=== PATIENT | male | born 1995 | race Hispanic/Latino ===

== ENCOUNTER → 2017-04-21 | Day surgery (SDC) | payer OTHER ==
[~2017-04-21] VITALS: Ht 153.7 cm; Wt 49.7 kg
[2017-04-21] VITALS (8 sets, daily range): BP systolic 90–118; BP diastolic 55–73; PULSE 50–78; RESP 12–16; O2SAT 98–100
[~2017-04-21] MED LIST: Bupivacaine-MPF 0.5% 30 mL Inj INFILTRATE ONE; CEPH500C PO; Dexamethasone 4 mg/mL Inj IVPUSH PRN; EPHEDrine Sulfate 50 mg/mL Inj IVPUSH PRN; HYDROcodone-APAP 5-325 mg Tablet PO PRN; HYDROmorphone 1 mg/mL Inj IVPUSH PRN; IBUP800T28 PO; Lactated Ringer's 1,000 ML IV ONE; Lactated Ringer's 1,000 ML IV SCH; Lactated Ringer's 500 ML IV PRN; MetoCLOpramide 5 mg/mL 2 mL Inj IVPUSH PRN; Ondansetron 2 mg/mL 2 mL Inj IVPUSH PRN; Ondansetron 2 mg/mL 2 mL Inj ONE; Phenylephrine 10,000 mCg/mL Inj IVPUSH PRN; Propofol 10,000 mCg/mL 20 mL Inj ONE; fentaNYL-PF 50 mCg/mL 2 mL Inj IVPUSH PRN; fentaNYL-PF 50 mCg/mL 2 mL Inj ONE
--- NOTE | 2017-04-21 06:58 | PCM.HPANE ---
Patient Data Date of Service: Apr 21, 2017 Surgeon Admitting Provider: Attending Provider:Kyle Lyles MD Primary Care Physician:Figueroa Other Provider:Audie Rosado Anesthesia Reason for Visit Right Thumb Nail Bed Laceration,Distal Tuft Fx Ht/WT & BMI Height (Feet): 5 Height (Inches): 0.5 Weight (Kilograms): 49.442 Body Mass Index 20.00 Allergies Coded Allergies: No Known Allergies (Unverified , 04/17/17) Past Anesthesia History Anesthesia History: Denies:: Fam Anesthesia Reaction, Fam Malignant Hypertherm Diabetes History Hx Diabetes?: No MRSA MRSA: No Medications Reported Medications Cephalexin 500 Mg [id number] Mg PO TID #40 CAPSULE Ref 0 04/17/17 Ibuprofen 800 Mg [id number] Mg PO TID PRN For Pain Ref 0 04/17/17 History History of ENT Problems?: No HEENT History: Denies:: Abnormal Airway Cataracts Difficult Intubation Dysphagia Glaucoma Hearing Problem Sinus Problem TMJ Denture Type: None Teeth Condition: Within Normal Limits Hx of Heart Problems?: No Cardiovascular History: Denies:: AICD Abdominal Aortic Aneurism Atrial Fibrillation Cardiac Surgery Chest Pain Congestive Heart Failure Coronary Artery Disease Edema Heart Murmur Hypertension Irregular Heartbeat Pacemaker Peripheral Vascular Rheumatic Fever Thrombophlebitis Valvular Heart Disease Hx of Respiratory Problem?: No Respiratory History: Denies:: Asthma COPD Chest Surgery Cough Dyspnea Emphysema Hemoptysis Oxygen Administration Pneumonia Pulmonary Embolism Tuberculosis Use of C-PAP Machine Use of Inhalers / NEBS Hx Neurologic Problems?: Yes Neurological History: Denies:: Alzheimer's Disease CVA Dementia Dizziness Headaches Multiple Sclerosis Parkinson's Disease Peripheral Neuropathy Seizures TIA Hx of GI Problems?: No Gastrointestinal History: Denies:: Cirrhosis Diverticulitis Gall Bladder Disease Gastroesphageal Reflux Gastrointestinal Bleeding Heartburn Hepatitis Hiatal Hernia Liver Disease Rectal Bleeding Hx of Problems?: No Genitourinary History: Denies:: HX of Hemodialysis Kidney Stones Urinary Tract Infection Male Hx: Denies:: Prostate Problems Scrotal Mass Testicular Surgery Skin History: Denies:: History Skin Disorders? Pressure Ulcers Hx Musculoskeletal Problems?: Yes Musculoskeletal History: Positive for:: Musculoskeletal Trauma (OPEN FX RT DISTAL THUMB W/ NAILBED DISRUPTION=CURRENT PROBLEM) Denies:: Back Injury Degenerative Joint Fibromyalgia Joint Replacement Myasthenia Gravis Osteoarthritis Rheumatoid Arthritis Systemic Lupus Hx of Psycho/Social Problems?: No Psycho Social History: Denies:: Anxiety Bipolar Disorder Hx Depression Suicide Attempt Hx Surgeries?: No Hx Any Other Health Problems?: No Other History: Denies:: Cancer Endocrine Disease Hospitalization Thyroid Disease History Blood Transfusions: Denies:: Accept Blood Products? Blood Transfuse Reaction Blood Transfusions Hx Diabetes: No Hx Alcohol Use: No Smoking Status: Never Smoker Have You Smoked inLast 12 mo: No Stop/Bang Treated for Sleep Apnea?: No Do You Have a CPAP Machine?: No S-Snoring: Do You Snore Loudly: No T-Tired: feel tired, fatigued: Yes O-Obsered: Observed not breath: No P-Blood Pressure: treated: No B- Body Mass Index > 35 kg/m2: No A- Age over 50: No N- Neck Large Circumference: No G- Gender Male: Yes CARLOS Total Score: 2 CARLOS Risk Assessment: Low Risk, <3 Yes Risk Assessment Category Category 1A: Patient has history of documented sleep apnea, and HAS NOT received any narcotic, sedative or anesthesia administration during this stay. Category 1B: Patient has history of documented sleep apnea, and HAS received any narcotic , sedative or anesthesia administration during this stay Category 2: Patient has SUSPECTED Obstructive Sleep Apnea, and HAS received any narcotic , sedative or anesthesia administration during this stay. Category 3: Patient has SUSPECTED Obstructive Sleep Apnea and HAS NOT received narcotic, sedative or anesthesia administration during this stay. Category 4: Outpatient in Procedural Areas with known sleep apnea or who screen positive for High Risk via the STOP/BANG questionnaire. Exam Exam General Appearance: Alert, Oriented X3, Cooperative, No Acute Distress HEENT/AIRWAY: MP 2 Lungs: Clear to Auscultation, Normal Air Movement Heart: Exam Unremarkable, Regular Rate/Rhythm, No Murmurs/Rubs/Gallops Plan Impression Patient chart reviewed, patient interviewed and anesthestic plan with risks, benefits, and alternatives discussed, and informed consent obtained. NPO per Anesth. Guidelines: Yes ASA Physical Status: ASA1 Normal Healthy Anesthetic Plan: GA Bene/Risks/Altern/Consents: Yes HP Complete Prior to Induction: Yes Luis Miguel Quinteros MD Apr 21, 2017 06:58
--- NOTE | 2017-04-21 13:36 | PCM.ANEP1 ---
Post Anesthesia PACU Phase 1 Assessment Vital Signs Vital Signs Date Time Temp Pulse Resp B/P Pulse Ox O2 Delivery O2 Flow Rate FiO2 04/21/17 13:30 36.2 78 13 103/66 100 Room Air 04/21/17 13:20 50 12 97/64 99 Room Air 04/21/17 13:15 50 12 101/67 99 Room Air 04/21/17 13:10 36.2 53 13 95/63 98 Simple Mask 10 04/21/17 13:05 56 13 93/64 98 Simple Mask 10 04/21/17 13:03 36.1 59 13 90/56 98 Simple Mask 10 04/21/17 10:55 36.5 65 16 107/55 100 Room Air Anesthetic Administered: GA Level of Alertness: Drowsy, not talking [place] OCA's with Equal Strength: Yes Pain: No Nausea or Vomiting: No CV Function & Hydration Stable: Yes Airway Device: Oralpharangeal Airway Oxygen Delivery: Simple Mask Lungs: Clear to Auscultation, Normal Air Movement PACU Phase 2 Assessment Complications: No Follow up Care: No Patient Instructions Provided: Yes Luis Miguel Quinteros MD Apr 21, 2017 13:36
--- NOTE | 2017-04-21 15:35 | OP ---
[address] [address] OPERATIVE REPORT PATIENT: JARED DUONG : 1995 MR#: [id number] ADMIT: 04/21/2017 JOB ID: [id number] DATE OF SURGERY: 04/21/2017 PREOPERATIVE DIAGNOSIS(ES): 1. Right thumb distal tuft fracture. ICD 10 code is 62.524 B. It was essentially an open fracture with an associated nailbed laceration. 2. Right nail bed laceration. ICD 10 code S61.319A and partial avulsion of the right thumb nail plate. POSTOPERATIVE DIAGNOSIS(ES): 1. Right thumb distal tuft fracture. ICD 10 code is 62.524 B. It was essentially an open fracture with an associated nailbed laceration. 2. Right nail bed laceration. ICD 10 code S61.319A and partial avulsion of the right thumb nail plate. PROCEDURE: 1. Removal of right thumb nail plate. CPT code 48654. 2. Repair of right thumb nail bed. CPT code 36909. 3. Irrigation debridement of right thumb distal tuft open fracture. CPT code 15798. 4. Open treatment of right thumb distal tuft fracture without requiring any internal fixation, just irrigation. CPT code 19998. SURGEON: Dr. Kyle Lyles. PREOPERATIVE DIAGNOSIS(ES): ANESTHESIA: General plus supplemental metacarpal nerve block performed by surgeon for postoperative analgesia. SPECIMEN: No specimen to pathology. COMPLICATIONS: No complications. ESTIMATED BLOOD LOSS: 2-3 mL. 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 He evidently smashed his right thumb on a trailer in the field picking the broccoli crops. The patient had a distal tuft fracture that was only slightly displaced. He also had partial avulsion of the nail plate from under the eponychial fold with blood underneath the nail plate most consistent with a nailbed injury. PROCEDURE IN DETAIL: Under adequate general anesthetic, a well-padded tourniquet was applied to the right upper extremity. After appropriate time-out was called, the right arm was elevated, exsanguinated, tourniquet inflated to 250 mmHg. The nail plate which was partially loose proximally, but adherent distally, was subsequently removed. The patient was noted to have an oblique laceration across the entire nail bed and extending just under the eponychial fold. A small counter incision was fashioned in an oblique fashion of the radial corner of the eponychial fold to expose the proximal portion of the laceration underneath the skin. The wound was thoroughly irrigated with antibiotic solution and it was irrigated down to the bone. The distal tuft fracture did not require any particular manipulation or any internal fixation as it was just a small distal tuft fracture. Once the nailbed and bone were thoroughly irrigated, clean gloves, clean instruments, and clean drapes were utilized. Utilizing loupe magnification, I repaired the nailbed was 7-0 Vicryl. I then repaired the small skin incision over the radial corner of the eponychial fold with a single horizontal mattress suture of 4-0 nylon. The nail plate that was removed was originally soaked in Betadine, and it was clean and trimmed. It was then rinsed and trimmed the nail plate and placed it over the nailbed as a stent to protect the repair and held it in position with one [id number] type suture with 4-0 Vicryl. I performed a metacarpal nerve block with 0.5% plain Marcaine. Tourniquet was released. Block was performed for postoperative analgesia. Xeroform dry sterile bulky dressings were applied. The patient was placed in a radial gutter fiberglass splint. No specimen to pathology. The patient was taken to the recovery room in stable condition. Sponge and needle count correct. The patient is an L and I case. He is not able to return to work at this time since they do not have any light duty except for working in the field to my knowledge. The patient needs to keep the wound clean and dry to decrease risk for bony infection. He has been given a prescription for Keflex as well as hydrocodone 5/325 for pain. If he has any problems with his dressing or splint, he should contact the office and should not remove the splint. He should not be working in the field with the splint as he with good this dirty with a high risk for infection. He will return to the office in two weeks. We will obtain new x-rays out of the splint. If the wound is clean and dry at that time, he might be able to have a small dressing placed on the thumb and return to some type of light duty. All of this was explained to the patient in its entirety with a marine propulsion technician. The nail plate that was replaced as a nail stent will eventually slough off. He has one single suture holding that nail plate in place and that probably may be able to be cut at about four weeks duration. He should regrow a nail under the eponychial fold. He may have some ridging in the nail, however, but this should hopefully just be cosmetic only.
== END | disposition home or self-care (01) ==
LOC: SAS 10:19
PROVIDERS: ATTEND Orthopaedic Surgery
DX: S62.521B Displaced fracture of distal phalanx of right thumb, initial encounter for open fracture (principal); S61.111A Laceration without foreign body of right thumb with damage to nail, initial encounter; W30.89XA Contact with other specified agricultural machinery, initial encounter; Y93.89 Activity, other specified; Y92.89 Other specified places as the place of occurrence of the external cause; Y99.0 Civilian activity done for income or pay
CPT/HCPCS: 11012; 11760; 26765; J0690; J2405; J3010; J7120